=== PATIENT | female | born 1995 | race African-American/Black ===

== ENCOUNTER → 2016-08-30 | Outpatient (CLI) | payer OTHER ==
[~2016-08-30] MED LIST: AMOX875T PO; DEPO150I IM; IBUP800T23 PO; MACR100C2 PO; PRED10 PO
== END ==
LOC: HPND 12:54
PROVIDERS: ATTEND Obstetrics & Gynecology
DX: O30.049 Twin pregnancy, dichorionic/diamniotic, unspecified trimester (principal)
CPT/HCPCS: 76811; 76812; 76817

== ENCOUNTER → 2016-09-19 | Outpatient (CLI) | payer OTHER | LOC: HPND 08:12 | PROVIDERS: ATTEND Obstetrics & Gynecology | DX: O43.192 Other malformation of placenta, second trimester (principal); O30.042 Twin pregnancy, dichorionic/diamniotic, second trimester; Z3A.22 22 weeks gestation of pregnancy | CPT/HCPCS: 76811; 76812; 76817 ==

== ENCOUNTER → 2016-10-16 | Outpatient (CLI) | payer OTHER | LOC: HPND 07:53 | PROVIDERS: ATTEND Obstetrics & Gynecology | DX: O30.042 Twin pregnancy, dichorionic/diamniotic, second trimester (principal) | CPT/HCPCS: 76816 ==

== ENCOUNTER → 2016-11-13 | Outpatient (CLI) | payer OTHER | LOC: HPND 07:49 | PROVIDERS: ATTEND Obstetrics & Gynecology | DX: O30.042 Twin pregnancy, dichorionic/diamniotic, second trimester (principal); Z3A.30 30 weeks gestation of pregnancy | CPT/HCPCS: 76816 ==

== ENCOUNTER → 2016-12-04 | Outpatient (CLI) | payer OTHER, MEDICAID | LOC: HPND 08:03 | PROVIDERS: ATTEND Obstetrics & Gynecology | DX: O30.043 Twin pregnancy, dichorionic/diamniotic, third trimester (principal) | CPT/HCPCS: 76816 ==

== ENCOUNTER 2016-12-16 22:09 | Emergency (ER) | payer OTHER ==
[~2016-12-16 22:09] MED LIST changes: -MACR100C2 PO
[2016-12-16 22:30] VITALS: BP 118/75; PULSE 92
[2016-12-16 22:45] VITALS: RESP 18; TEMP 98.2
[2016-12-16] MEDS ORDERED: TERBUTALINE INJ 1 MG/ML AMP ONE (22:57)
[2016-12-16] MEDS ORDERED: TERBUTALINE INJ 1 MG/ML AMP SQ ONE (23:00)
[2016-12-16 23:06] LABS: BACTERIA, URINE MOD /hpf; BLOOD, URINE NEG (NEG); GLUCOSE,URINE NEG (NEG); KETONE, URINE NEG (NEG); MUCUS URINE FEW /lpf (OCC); NITRITE,URINE NEG (NEG); PH, URINE 6.5 (5.0-8.5); SQUAMOUS EPITHELIAL CELL URINE 1 /hpf (0-5); URINE COLOR YELLOW (YELLW/STRAW)
[2016-12-16 23:09] LABS: COMMENT (UR) CULTURE INDICATED; CULTURE IF INDICATED CULTURE INDICATED
[2016-12-16] MEDS ORDERED: MACR100C2 PO (23:37)
--- NOTE | 2016-12-16 23:37 | PD ---
HPI Chief Complaint contractions Date Seen: Dec 16, 2016 Travel History International Travel<30 Days: No Contact w/Intl Traveler<30Days: No Known Affected Area: No History of Present Illness HPI This is a 21y/o at 34w5d with di/di TIUP who presented to the [facility] with reports of "baby balling up." She states the contractions are 2 minutes apart. No vaginal bleeding or leakage of fluid with reports of active movements. Pt reports poor water intake today. care with Dr. Nolan, care complicated by: 1. Di/di tiup 2. morbid obesity Para: 0 : 1 History Past Medical History Medical History: Denies Significant Hx Past Surgical History Surgical History: No Previous Surgery Family History Family History: Negative Social History Alcohol Use: No Tobacco Use: No Substance Abuse: No Allergies-Medications (Allergen,Severity, Reaction): Coded Allergies: No Known Allergies (Verified , 03/21/16) Home Meds Active Scripts Nitrofurantoin Monohydrate Macrocrystals (Macrobid)100 Mg Pbp019 Mg PO BID PRN ( Infection) 7 Days Ref 0 Prov:Marga Rodriguez MD 12/16/16 Prednisone (Deltasone)10 Mg Tab30 Mg PO DAILY #9 TAB Ref 0 Prov:Andrés Dugan MD 03/21/16 Ibuprofen 800 Mg Bwc383 Mg PO TID PRN (pain) #30 TAB Ref 0 Prov:Andrés Dugan MD 03/21/16 Amoxicillin (Amoxil)875 Mg Tlz240 Mg PO BID 10 Days Prov:Jovanny Barba MD 07/27/15 Reported Medications Medroxyprogesterone Acetate (Depo-Provera Contraceptive)150 Mg/Ml Zwgq360 Mg IM Q90D 01/17/15 Review of Systems Except as stated in HPI: all other systems reviewed are Neg Physical Exam Narrative GENERAL: Well-nourished, well-developed patient. SKIN: Warm and dry. HEAD: Normocephalic and atraumatic. EYES: No scleral icterus. No injection or drainage. ENT: No nasal drainage noted. Mucous membranes pink. Airway patent. NECK: Supple, trachea midline. No JVD. CARDIOVASCULAR: Regular rate and rhythm without murmurs, gallops, or rubs. RESPIRATORY: Breath sounds equal bilaterally. No accessory muscle use. BREASTS: Bilateral exam showed no masses , no retractions, no nipple discharge. ABDOMEN/GI: Abdomen soft, non-tender, bowel sounds present, no rebound, no guarding Gravid to 34 weeks size Fundal Height: 39 GENITOURINARY: External Genitalia: intact and normal in appearance VE: c/thick/high Uterine Contractions: q 2-3 minutes apart FHT's: Category: 1, tracing patchy, very active fetuses EXTREMITIES: No cyanosis or edema. BACK: Nontender without obvious deformity. No CVA tenderness. NEUROLOGICAL: Awake and alert. Motor and sensory grossly within normal limits. Five out of 5 muscle strength in all muscle groups. Normal speech. Data Data Orders Urinalysis - C+S If Indicated (12/16/16 22:28) Terbutaline Inj (Brethine Inj) (12/16/16 22:57) Vital Signs (Adult) .ON ADMISSION (12/16/16 22:58) ^ Labor Status (12/16/16 22:58) ^ Non Stress Test (12/16/16 22:58) ^ Hydration (12/16/16 22:58) Terbutaline Inj (Brethine Inj) (12/16/16 23:00) Urine Culture (12/16/16 22:25) Labs Laboratory Tests Test 12/16/16 22:25 Urine Color YELLOW Urine Turbidity HAZY Urine pH 6.5 Urine Specific [place] 1.015 Urine Protein TRACE Urine Glucose (UA) NEG Urine Ketones NEG Urine Occult Blood NEG Urine Nitrite NEG Urine Bilirubin NEG Urine Urobilinogen LESS THAN 2.0 Urine Leukocyte Esterase MOD Urine RBC LESS THAN 1 Urine WBC 3 Urine Squamous Epithelial 1 Cells Urine Bacteria MOD Urine Mucus FEW Microscopic Urinalysis Comment CULTURE INDICATED Date/Time Procedure Status Source Growth 12/16/16 22:25 Urine Culture Received Urine Clean Catch Pending MDM Medical Record Reviewed: Yes Narrative Course / MDM 21y/o at 34w5d with di/di TIUP with UTI. -reassuring status times 2, tracing patchy due to very active fetuses -no evidence of PTL -received 2 doses of terbutaline and contractions subsided Plan -Rx macrobid -f/u with Dr. Nolan as scheduled Diagnosis Diagnosis: Primary Impression: UTI (urinary tract infection) in in third trimester Additional Impression: Dichorionic diamniotic twin in third trimester Disposition: 01 DISCHARGE HOME Condition: Good Scripts Nitrofurantoin Monohydrate Macrocrystals (Macrobid)100 Mg Ydw006 Mg PO BID PRN ( Infection) 7 Days Ref 0 Prov:Marga Rodriguez MD 12/16/16 Marga Rodriguez MD Dec 16, 2016 23:37
[2016-12-17] MEDS ORDERED: TERBUTALINE INJ 1 MG/ML AMP SQ ONE (00:30)
== END 2016-12-17 01:16 | disposition home or self-care (01) ==
LOC: HOBED 22:09
DX: O23.43 Unspecified infection of urinary tract in pregnancy, third trimester (principal); O30.043 Twin pregnancy, dichorionic/diamniotic, third trimester; O99.213 Obesity complicating pregnancy, third trimester; Z3A.34 34 weeks gestation of pregnancy; Z79.899 Other long term (current) drug therapy
CPT/HCPCS: 81001; 87086; 99283; J3105

== ENCOUNTER 2016-12-31 21:16 | Emergency (ER) | payer OTHER, MEDICAID ==
[~2016-12-31 21:16] MED LIST changes: +MACR100C2 PO
[2016-12-31 21:45] VITALS: TEMP 98
--- NOTE | 2016-12-31 21:58 | PD ---
HPI Travel History International Travel<30 Days: No Contact w/Intl Traveler<30Days: No Known Affected Area: No History of Present Illness HPI This patient is a 21-year-old 1 para 0 EDC is January 22, 2017 presently at 36 weeks and 6 days she presents with the chief complaint of onset of contractions since about 7:30 PM no ruptured membranes no vaginal bleeding both babies are active she has a twin gestation first baby is transverse second one is vertex and will be having a section No nausea no vomiting no fever no chills no headaches no blurred vision has had diarrhea for about 2 days care with courses been unremarkable History Past Medical History Narrative Medical No known drug allergies no major medical problems Obstetric History Obstetric History First Past Surgical History Surgical History: No Previous Surgery Family History Family History: Negative Social History Alcohol Use: No Tobacco Use: No Substance Abuse: No Allergies-Medications (Allergen,Severity, Reaction): Coded Allergies: No Known Allergies (Verified , 03/21/16) Home Meds Active Scripts Nitrofurantoin Monohydrate Macrocrystals (Macrobid)100 Mg Ixm230 Mg PO BID PRN ( Infection) 7 Days Ref 0 Prov:Marga Rodriguez MD 12/16/16 Prednisone (Deltasone)10 Mg Tab30 Mg PO DAILY #9 TAB Ref 0 Prov:Andrés Dugan MD 03/21/16 Ibuprofen 800 Mg Tgd554 Mg PO TID PRN (pain) #30 TAB Ref 0 Prov:Andrés Dugan MD 03/21/16 Amoxicillin (Amoxil)875 Mg Gkg689 Mg PO BID 10 Days Prov:Jovanny Barba MD 07/27/15 Reported Medications Medroxyprogesterone Acetate (Depo-Provera Contraceptive)150 Mg/Ml Azzf016 Mg IM Q90D 01/17/15 Review of Systems Gastrointestinal: Diarrhea, Abdominal Pain (contractions as per history of present illness) Physical Exam Narrative GENERAL: Well-nourished, well-developed patient. Alert oriented 3 and cooperative in no acute distress CARDIOVASCULAR: Regular rate and rhythm without murmurs, gallops, or rubs. RESPIRATORY: Breath sounds equal bilaterally. No accessory muscle use. ABDOMEN/GI: Gravid size greater than dates due to twin gestation Gravid to [-] weeks size size greater than dates Fundal Height: [-] GENITOURINARY: External Genitalia: intact and normal in appearance BUS glands: [-] Cervix: [-] Posterior soft Dilatation: [-] Fingertip to 1 Effacement: [-] 50% effaced Station: [-] Presenting part is high Presentation: [-] Unable to determine presenting part Membranes: [intact Uterine Contractions: [-] Irregular FHT's: Category: [-] 06/25 Baseline: [-] 140/140 Reactive: [-] +/+ Variability: [-] Moderate [id number] variability Decels: [-] 0 EXTREMITIES: No cyanosis or edema. 2+ reflexes NEUROLOGICAL: Awake and alert. Motor and sensory grossly within normal limits. Five out of 5 muscle strength in all muscle groups. Normal speech. Data Data Vital Signs Reviewed: Yes (blood pressure 133/80 pulse is 87 she is afebrile) Orders Vital Signs (Adult) .ON ADMISSION (12/31/16 21:53) ^ Labor Status (12/31/16 21:53) Urinalysis - C+S If Indicated (12/31/16 21:53) ^ Hydration (12/31/16 21:53) Labs Both babies demonstrate category 1 with moderate [id number] variability and accelerations MDM Medical Record Reviewed: No (no records available) Interpretation(s) 21-year-old at 36 weeks and 6 days Diamniotic dichorionic twin gestation [place] No clinical signs of active labor Transverse/ vertex necessitating section Narrative Course / MDM Patient evaluated after observation over the past hour no cervical change Urinalysis indicative UTI Will place patient on Keflex 500 mg by mouth 3 times a day for 7 days increase by mouth fluids kick count Keep appointment with Dr. Nolan on Sunday Plan External monitoring By mouth fluid hydration Urinalysis Reevaluation Physician Communication Spoke with Dr. Matos who is covering for DR herzog he agrees with evaluation and management Diagnosis Diagnosis: Primary Impression: 36 weeks gestation of Additional Impressions: Twin gestation in third trimester Qualified Code: O30.043 - Dichorionic diamniotic twin in third trimester Urinary tract infection affecting care of mother in third trimester, antepartum Disposition: DISCHARGE HOME Condition: Stable Mihaela Whitaker MD Dec 31, 2016 21:57
[2016-12-31 22:23] LABS: BACTERIA, URINE MANY /hpf; BLOOD, URINE NEG (NEG); COMMENT (UR) CULTURE INDICATED; CULTURE IF INDICATED CULTURE INDICATED; GLUCOSE,URINE NEG (NEG); KETONE, URINE NEG (NEG); MUCUS URINE FEW /lpf (OCC); NITRITE,URINE NEG (NEG); PH, URINE 6.5 (5.0-8.5); SQUAMOUS EPITHELIAL CELL URINE 4 /hpf (0-5); URINE COLOR YELLOW (YELLW/STRAW)
[2016-12-31 22:30] VITALS: RESP 18
== END 2016-12-31 22:54 | disposition home or self-care (01) ==
LOC: HOBED 21:16
DX: O23.43 Unspecified infection of urinary tract in pregnancy, third trimester (principal); O30.043 Twin pregnancy, dichorionic/diamniotic, third trimester; Z3A.36 36 weeks gestation of pregnancy; Z79.899 Other long term (current) drug therapy; Z79.1 Long term (current) use of non-steroidal anti-inflammatories (NSAID)
CPT/HCPCS: 59025; 81001; 87086

== ENCOUNTER 2017-01-02 14:13 | Inpatient (IN) | payer OTHER, MEDICAID ==
[~2017-01-02] VITALS: Ht 177.8 cm; Wt 127.5 kg
[2017-01-08] VITALS (13 sets, daily range): BP systolic 107–129; BP diastolic 57–69; PULSE 71–79; RESP 16–22; TEMP 97.6–98.2; O2SAT 97–100
[2017-01-08] MEDS ORDERED: prenatal vitamin (10:29)
[2017-01-08] MEDS ORDERED: ASPI81CH CHEW (10:29)
[2017-01-08 10:57] LABS: MEAN CORPUSCULAR HGB CONC 29.8 % (32.0-36.0)
[2017-01-08 11:05] LABS: AUTOMATED NEUTROPHIL # 6.1 TH/MM3 (1.8-7.7); BASOPHIL % 0.4 % (0.0-2.0); EOSINOPHIL % 0.5 % (0.0-4.0); HEMATOCRIT 23.7 % (35.0-46.0); HEMO FLAGS DIFF FINAL; LYMPH % 18.7 % (9.0-44.0); LYMPHOCYTE # 1.6 TH/MM3 (1.0-4.8); MEAN CELL VOLUME 65.2 FL (80.0-100.0); MEAN CORPUSCULAR HEMOGLOBIN 19.4 PG (27.0-34.0); MONO % 8.7 % (0.0-8.0); NEUT % 71.7 % (16.0-70.0); PLATELET COUNT 220 TH/MM3 (150-450); RED BLOOD COUNT 3.63 MIL/MM3 (4.00-5.30); RED CELL DISTRIBUTION WIDTH 18.5 % (11.6-17.2); WHITE BLOOD COUNT 8.5 TH/MM3 (4.0-11.0)
[2017-01-08 11:09] LABS: BACTERIA, URINE MOD /hpf; BLOOD, URINE NEG (NEG); COMMENT (UR) CULTURE INDICATED; CULTURE IF INDICATED CULTURE INDICATED; GLUCOSE,URINE NEG (NEG); HYALINE CAST, URINE 1 /lpf (RARE); KETONE, URINE NEG (NEG); MUCUS URINE FEW /lpf (OCC); NITRITE,URINE NEG (NEG); PH, URINE 6.5 (5.0-8.5); SQUAMOUS EPITHELIAL CELL URINE 1 /hpf (0-5); URINE COLOR YELLOW (YELLW/STRAW)
[2017-01-08] MEDS ORDERED: LACTATED RINGER'S 1000 ML IV SCH (11:15)
[2017-01-08] MEDS ORDERED: LACTATED RINGER'S 1000 ML IV ONE (11:15)
[2017-01-08] MEDS ORDERED: ceFAZolin 2 GM PREMIX 50 ML IV SCH (11:15)
[2017-01-08] MEDS ORDERED: CITRIC ACID-SODIUM CITRATE LIQ 30 ML UDC PO SCH (11:15)
[2017-01-08] MEDS ORDERED: ONDANSETRON HCL 4 MG/2 ML VIAL ONE (11:37)
[2017-01-08] MEDS ORDERED: MORPHINE SULFATE PF 5 MG/10 ML VIAL ONE (11:37)
[2017-01-08] MEDS ORDERED: OXYTOCIN 10 UNIT/ML AMP ONE (11:38)
[2017-01-08] MEDS ORDERED: EPIDURAL-NALOXONE HCL 0.4 MG/ML AMP IV PRN (12:00)
[2017-01-08] MEDS ORDERED: EPIDURAL-NO SYSTEMIC NARCOTICS PRN (12:00)
[2017-01-08] MEDS ORDERED: EPIDURAL-DIPHENHYDRAMINE HCL 50 MG/ML VIAL IV PUSH PRN (12:00)
[2017-01-08] MEDS ORDERED: EPIDURAL-DO NOT ADMINISTER ANTICOAGULANTS PRN (12:00)
[2017-01-08] MEDS ORDERED: LACTATED RINGER'S 1,000 ML BAG IV ONE (12:15)
[2017-01-08] MEDS ORDERED: CARBOPROST TROMETHAMINE 250 MCG/ML VIAL ONE (12:35)
[2017-01-08] MEDS ORDERED: MIDAZOLAM HCL 2 MG/2 ML VIAL ONE (13:24)
[2017-01-08] MEDS ORDERED: SODIUM CHLORIDE 0.9% FLUSH 10 ML FLUSH IV FLUSH PRN (14:15)
[2017-01-08] MEDS ORDERED: ZOLPIDEM TARTRATE 5 MG TAB PO PRN (14:15)
[2017-01-08] MEDS ORDERED: OXYTOCIN 30 UNITS-500ML PREMIX 500 ML ONE (14:15)
[2017-01-08] MEDS ORDERED: OXYTOCIN 30 UNITS-500ML PREMIX 500 ML IV ONE (14:15)
[2017-01-08] MEDS ORDERED: ONDANSETRON HCL 4 MG/2 ML VIAL IV PUSH PRN (14:15)
[2017-01-08] MEDS ORDERED: HYDROmorphone HCL PF 1 MG/ML VIAL IV PRN (15:45)
[2017-01-08] MEDS: IBUPROFEN 600 MG TAB PO PRN ×2 (17:44→23:48)
[2017-01-08] MEDS ORDERED: LACTATED RINGER'S 1000 ML INJ 1,000 ML IV SCH (19:06)
[2017-01-08] MEDS: EPIDURAL-DIPHENHYDRAMINE HCL 50 MG CAP PO PRN (19:10)
[2017-01-08] MEDS: SODIUM CHLORIDE 0.9% FLUSH 10 ML FLUSH IV FLUSH SCH (19:30)
[2017-01-09] MEDS ORDERED: OXYTOCIN 30 UNITS-500ML PREMIX 500 ML IV PRN (00:15)
[2017-01-09 00:45] VITALS: RESP 18
[2017-01-09] MEDS: EPIDURAL-DIPHENHYDRAMINE HCL 50 MG CAP PO PRN (01:03)
[2017-01-09] MEDS: oxyCODONE/ACETAMINOPHEN 5 MG/325 MG TAB PO PRN ×6 (01:31→21:18)
[2017-01-09 03:45] VITALS: BP 122/60; PULSE 65; RESP 18; TEMP 97.8
[2017-01-09 05:04] LABS: BASOPHIL # 0.1 TH/MM3 (0-0.2); BASOPHIL % 0.5 % (0.0-2.0); EOSINOPHIL # 0.1 TH/MM3 (0-0.4); EOSINOPHIL % 0.8 % (0.0-4.0); LYMPH % 16.7 % (9.0-44.0); LYMPHOCYTE # 1.6 TH/MM3 (1.0-4.8); MEAN CORPUSCULAR HEMOGLOBIN 20.2 PG (27.0-34.0); MEAN CORPUSCULAR HGB CONC 30.7 % (32.0-36.0); MONO % 11.4 % (0.0-8.0); NEUT % 70.6 % (16.0-70.0); PLATELET COUNT 183 TH/MM3 (150-450); RED BLOOD COUNT 3.11 MIL/MM3 (4.00-5.30); RED CELL DISTRIBUTION WIDTH 18.4 % (11.6-17.2); WHITE BLOOD COUNT 9.9 TH/MM3 (4.0-11.0)
[2017-01-09 05:12] LABS: HEMO FLAGS DIFF FINAL
[2017-01-09 05:16] LABS: HEMATOCRIT 20.5 % (35.0-46.0)
[2017-01-09] MEDS: MULTIVIT/MIN/PREN/FOL AC/IRON PRENATAL TAB PO SCH (07:59)
[2017-01-09] MEDS: IBUPROFEN 600 MG TAB PO PRN ×3 (07:59→21:17)
[2017-01-09 08:04] VITALS: BP 120/81; PULSE 73; RESP 16; TEMP 97.7
--- NOTE | 2017-01-09 08:35 | HHI.OB ---
Subjective Post Operative Day: 1 Remarks Feeling well this morning. Those babies are doing excellently. No shortness of breath chest pain or pressure no dizziness. Pain is well controlled and tolerating the diet Objective Vitals/I&O Vital Signs Date Time Temp Pulse Resp B/P Pulse Ox O2 Delivery O2 Flow Rate FiO2 01/09/17 08:04 97.7 73 16 120/81 01/09/17 03:45 97.8 65 18 01/09/17 03:45 122/60 01/09/17 00:45 18 01/08/17 23:45 97.8 18 01/08/17 23:45 78 107/64 01/08/17 21:45 18 01/08/17 19:30 97.8 71 18 118/60 01/08/17 17:12 18 01/08/17 16:10 18 01/08/17 15:25 97.6 71 18 110/57 97 01/08/17 14:05 97.6 01/08/17 14:01 78 18 117/59 100 01/08/17 13:48 100 01/08/17 13:46 79 20 122/69 01/08/17 13:35 99 01/08/17 13:27 97.7 76 22 129/58 01/08/17 11:06 98.2 16 Result Diagram: 01/09/17 0404 Objective Remarks GENERAL: Well-nourished, well-developed patient. CARDIOVASCULAR: Regular rate and rhythm without murmurs, gallops, or rubs. RESPIRATORY: Breath sounds equal bilaterally. No accessory muscle use. ABDOMEN/GI: Abdomen soft, non-tender, bowel sounds present. Incision: Clean, dry and intact. Fundus: Firm, non-tender at umbilicus. GENITOURINARY: Light to moderate bleeding. EXTREMITIES: No cyanosis or edema, non-tender, without signs of DVT. Medications and IVs Current Medications Medications (Trade) Dose Ordered Sig/Raji Route Start Time Stop Time Status Last Admin (Lr 1000 ml Inj) 1,000 ml @ 100 mls/hr Q10H IV 01/08/17 19:06 01/09/17 15:05 01/08/17 20:00 (NS Flush) 2 ml BID IV FLUSH 01/08/17 21:00 01/08/17 19:30 (NS Flush) 2 ml UNSCH PRN IV FLUSH 01/08/17 14:15 (Mylicon Chew) 80 mg QID PRN PO 01/08/17 14:15 (Motrin) 600 mg Q6H PRN PO 01/08/17 14:15 01/09/17 07:59 (Percocet 5-325 Mg) 1 tab Q4H PRN PO 01/08/17 14:15 01/09/17 03:44 (Percocet 5-325 Mg) 2 tab Q4H PRN PO 01/08/17 14:15 01/09/17 08:00 (Ivelisse-Colace) 2 tab Q12H PRN PO 01/08/17 14:15 (Ambien) 5 mg HS PRN PO 01/08/17 14:15 (M-M-R Ii Inj) 0.5 ml ONCE ONCE SQ 01/09/17 16:00 01/09/17 16:01 (Boostrix Inj) 0.5 ml ONCE ONCE IM 01/09/17 16:00 01/09/17 16:01 (Zofran Inj) 4 mg Q6H PRN IV PUSH 01/08/17 14:15 (Stuartnatal Plus 3 ) 1 tab DAILY PO 01/09/17 09:00 01/09/17 07:59 Miscellaneous Information NO SYSTEMIC NARCOTICS TO BE GIVEN FO... UNSCH PRN .XX 01/08/17 12:00 01/09/17 11:59 (Narcan Inj) 0.4 mg UNSCH PRN IV 01/08/17 12:00 01/09/17 11:59 (Benadryl Inj) 25 mg Q6H PRN IV PUSH 01/08/17 12:00 01/09/17 11:59 (Benadryl) 50 mg Q6H PRN PO 01/08/17 12:00 01/09/17 11:59 01/09/17 01:03 Miscellaneous Information ALL NURSING DEPARTMENTS UNSCH PRN .XX 01/08/17 12:00 01/09/17 11:59 Assessment/Plan Assessment and Plan POD #1 Status post section for twin gestation Severe anemia he came in with a hemoglobin of 7 and now she has a hemoglobin of 6.3 but she is totally asymptomatic I will start Venofer. This time and recheck her blood count in the morning if it is still low we'll discuss the transfusion and rate are detail. We will transfuse her if she becomes symptomatic in any way. Discharge Planning Plan to discharge on postop day 3 or 4 Diamond Nolan MD Jan 09, 2017 08:35
[2017-01-09] MEDS: SODIUM CHLORIDE 0.9% FLUSH 10 ML FLUSH IV FLUSH SCH ×2 (09:00→23:18)
[2017-01-09] MEDS ORDERED: IRON SUCROSE INJ 200 MG in SODIUM CHLORIDE 0.9% INJ 100 ML IV SCH (09:00)
--- NOTE | 2017-01-09 11:19 | MP ---
cc: ANA NOLAN DATE OF SURGERY 01/08/2017 PREOPERATIVE DIAGNOSIS 1. Intrauterine at 38 weeks 2. Twin gestation 3. Transverse position 4. Severe anemia POSTOPERATIVE DIAGNOSIS 1. Intrauterine at 38 weeks 2. Twin gestation 3. Transverse position 4. Severe anemia PROCEDURE Primary low transverse section. ANESTHESIA Spinal SURGEON Sohail Nolan MD FINDINGS Two viable twins, twin A with 's of 8 and 9, weight 6 pounds 11 ounces. Twin B 's of 8 and 9, weight was 5 pounds 6 ounces, normal tubes, normal ovaries, normal cul-de-sacs normal uterus. COMPLICATIONS None COUNTS Correct ESTIMATED BLOOD LOSS 600 cc FLUIDS Crystalloids CONDITION The patient tolerated the procedure well and went to the recovery room in good condition. INDICATIONS FOR THE PROCEDURE This is a patient who has had a twin gestation and has done very well. She had an ultrasound on the labor floor prior to this section which confirmed transverse/transverse twins. After discussing the risks and benefits, we decided to proceed with section. PROCEDURE NOTE The patient was taken to the operating room and given a spinal anesthetic. She was then prepped and draped in the usual sterile fashion for a delivery and a Reynoso catheter inserted into the bladder. Time-out was taken and a Pfannenstiel incision was made and carried down to the fascia. The fascia was taken off the rectus muscle by blunt sharp dissection. The peritoneum was entered under direct vision. The peritoneum was taken off the lower uterine segment for a bladder flap and the uterus was incised in a transverse manner. The first baby was transverse went up and grabbed the vertex, moved it down to the incision and with gentle fundal pressure, we delivered the 's head. The remainder of the was delivered. The cord doubly clamped and cut and handed to the resuscitation team present. The second twin was also a transverse and likewise I grabbed the head, gently pulled it down to the incision and with gentle fundal pressure delivered the vertex and the remainder the child. Again, the cord was doubly clamped and cut and cord blood obtained was obtained and the placenta was delivered manually. We did not wait 45 seconds for the cord clamping because of the severe anemia of the patient and trying to avoid a blood transfusion. The uterus was then curettaged twice with a wet lap once it was clean. The uterine incision was repaired with a 0 Vicryl in a running fashion in two layers, the second layer imbricating the first. The Hemabate was given at this time in an effort to minimize bleeding. The uterus was delivered back into the abdomen and the rectus muscles were reapproximated with 0 Vicryl in a running fashion. The fascia was repaired with 0 Vicryl in a running fashion. The subcu was repaired with 3-0 Vicryl. Skin was repaired with a 4-0 Monocryl in subcuticular fashion. The wound was sterilely dressed. She tolerated the procedure well and went to the recovery room in good condition. R. MD VIBHA Anand/KIN /7:02 AM /11:16 AM
[2017-01-09] MEDS ORDERED: MEASLES, MUMPS, RUBELLA VACCINE 0.5 ML VIAL SQ ONE (16:00)
[2017-01-09] MEDS ORDERED: DIPHTH/TETANUS/ACEL PERTUSSIS (BOOSTER) 0.5 ML VIAL/PFS IM ONE (16:00)
[2017-01-09 19:45] VITALS: BP 126/70; PULSE 87; RESP 18; TEMP 98.8
[2017-01-09] MEDS: SIMETHICONE 80 MG CHEWABLE TAB PO PRN (21:18)
[2017-01-09] MEDS: DOCUSATE SODIUM 50 MG/SENNA 8.6 MG TAB PO PRN (22:01)
[2017-01-10] VITALS (8 sets, daily range): BP systolic 117–127; BP diastolic 26–88; PULSE 79–94; RESP 16–18; TEMP 98.1–98.6
[2017-01-10] MEDS: oxyCODONE/ACETAMINOPHEN 5 MG/325 MG TAB PO PRN ×4 (03:03→23:03)
[2017-01-10] MEDS: IBUPROFEN 600 MG TAB PO PRN ×4 (03:04→23:04)
[2017-01-10] MEDS: DOCUSATE SODIUM 50 MG/SENNA 8.6 MG TAB PO PRN ×2 (09:36→23:04)
[2017-01-10] MEDS: MULTIVIT/MIN/PREN/FOL AC/IRON PRENATAL TAB PO SCH (09:36)
[2017-01-10] MEDS: SIMETHICONE 80 MG CHEWABLE TAB PO PRN ×2 (09:36→23:04)
[2017-01-10 09:40] LABS: MEAN CELL VOLUME 64.8 FL (80.0-100.0); MEAN CORPUSCULAR HEMOGLOBIN 19.4 PG (27.0-34.0); PLATELET COUNT 212 TH/MM3 (150-450); RED BLOOD COUNT 3.21 MIL/MM3 (4.00-5.30); RED CELL DISTRIBUTION WIDTH 17.8 % (11.6-17.2); WHITE BLOOD COUNT 11.7 TH/MM3 (4.0-11.0)
[2017-01-10 09:47] LABS: REVIEW FLAG FINAL
[2017-01-10 09:49] LABS: HEMATOCRIT 20.8 % (35.0-46.0)
--- NOTE | 2017-01-10 11:07 | HHI.OB ---
Subjective Post Operative Day: 2 Objective Vitals/I&O Vital Signs Date Time Temp Pulse Resp B/P Pulse Ox O2 Delivery O2 Flow Rate FiO2 01/10/17 08:39 79 16 121/73 01/10/17 08:39 98.6 01/09/17 19:45 87 126/70 01/09/17 19:45 98.8 18 Result Diagram: 01/10/17916 Objective Remarks GENERAL: Well-nourished, well-developed patient. CARDIOVASCULAR: Regular rate and rhythm without murmurs, gallops, or rubs. RESPIRATORY: Breath sounds equal bilaterally. No accessory muscle use. ABDOMEN/GI: Abdomen soft, non-tender, bowel sounds present. Incision: Clean, dry and intact. Fundus: Firm, non-tender at umbilicus. GENITOURINARY: Light to moderate bleeding. EXTREMITIES: No cyanosis or edema, non-tender, without signs of DVT. Medications and IVs Current Medications Medications (Trade) Dose Ordered Sig/Raji Route Start Time Stop Time Status Last Admin (NS Flush) 2 ml BID IV FLUSH 01/08/17 21:00 01/09/17 23:18 (NS Flush) 2 ml UNSCH PRN IV FLUSH 01/08/17 14:15 (Mylicon Chew) 80 mg QID PRN PO 01/08/17 14:15 01/10/17 09:36 (Motrin) 600 mg Q6H PRN PO 01/08/17 14:15 01/10/17 09:36 (Percocet 5-325 Mg) 1 tab Q4H PRN PO 01/08/17 14:15 01/09/17 12:26 (Percocet 5-325 Mg) 2 tab Q4H PRN PO 01/08/17 14:15 01/10/17 09:36 (Ivelisse-Colace) 2 tab Q12H PRN PO 01/08/17 14:15 01/10/17 09:36 (Ambien) 5 mg HS PRN PO 01/08/17 14:15 (Zofran Inj) 4 mg Q6H PRN IV PUSH 01/08/17 14:15 Prenat Multivit/ Kleberg/Iron/Folic Ac 1 tab 1 tab DAILY PO 01/09/17 09:00 01/10/17 09:36 (Venofer Inj/NS Inj) 110 ml @ 110 mls/hr Q24H IV 01/10/17 13:00 01/11/17 13:59 Assessment/Plan Problem List: (1) Anemia Plan: IV VENOFER. CONSIDER TRANSFUSION (2) S/P primary low transverse Plan: ROUTINE Assessment and Plan POD #2 Status post section for twin gestation Severe anemia she came in with a hemoglobin of 7, next day 6.3, and today 6.2. Pt has had iv venofer. she denies chest pain, dizziness or sob, she is feeling more tired today. Here family is very helpful with the babies. Discussed with patient that I feel the benefits of a transfusion will outweigh any risks. she will discuss with her family. PAIN WELL MANAGED WITH ORAL PAIN MEDICATION ROUTINE POST OP CARE Discharge Planning Plan to discharge on postop day 3 Nga Bond Jan 10, 2017 11:07
[2017-01-10] MEDS ORDERED: diphenhydrAMINE HCL 50 MG/ML VIAL IV ONE (12:30)
[2017-01-10] MEDS ORDERED: ACETAMINOPHEN 325 MG TAB PO ONE (12:30)
[2017-01-10] MEDS ORDERED: IRON SUCROSE INJ 200 MG in SODIUM CHLORIDE 0.9% INJ 100 ML IV SCH (13:00)
[2017-01-11 05:59] LABS: AUTOMATED NEUTROPHIL # 10.9 TH/MM3 (1.8-7.7); BASOPHIL % 0.2 % (0.0-2.0); EOSINOPHIL # 0.2 TH/MM3 (0-0.4); EOSINOPHIL % 1.6 % (0.0-4.0); HEMATOCRIT 23.7 % (35.0-46.0); HEMO FLAGS DIFF FINAL; LYMPH % 13.5 % (9.0-44.0); LYMPHOCYTE # 1.9 TH/MM3 (1.0-4.8); MEAN CELL VOLUME 68.4 FL (80.0-100.0); MEAN CORPUSCULAR HEMOGLOBIN 21.6 PG (27.0-34.0); MEAN CORPUSCULAR HGB CONC 31.6 % (32.0-36.0); MONO % 7.9 % (0.0-8.0); NEUT % 76.8 % (16.0-70.0); PLATELET COUNT 207 TH/MM3 (150-450); RED BLOOD COUNT 3.46 MIL/MM3 (4.00-5.30); RED CELL DISTRIBUTION WIDTH 20.9 % (11.6-17.2); WHITE BLOOD COUNT 14.2 TH/MM3 (4.0-11.0)
[2017-01-11] MEDS: IBUPROFEN 600 MG TAB PO PRN ×2 (06:20→10:37)
[2017-01-11] MEDS: oxyCODONE/ACETAMINOPHEN 5 MG/325 MG TAB PO PRN ×2 (06:20→11:15)
[2017-01-11 08:00] VITALS: BP 112/68; PULSE 83; RESP 18; TEMP 98.5
--- NOTE | 2017-01-11 11:36 | HHI.HP ---
HPI Chief Complaint presents for scheduled primary c section for twins Date Seen: Jan 08, 2017 Travel History International Travel<30 Days: No Contact w/Intl Traveler<30Days: No Known Affected Area: No History of Present Illness HPI 21 year old black female, who is with Di/Di twins at 38 weeks gestation , She is being admitted for a primary c section due to the transverse/ transverse position Para: 0 : 2 : 1 History Past Medical History Narrative Medical anemia with right breast mass CIN1, September of 2015, last pap April 2016 Obstetric History Obstetric History Di/Di twins at 38 weeks gbs negative Past Surgical History Narrative Surgical none Family History Narrative Family History dementia great grandmother High bp grandmother Social History Alcohol Use: No Tobacco Use: No Substance Abuse: No Allergies-Medications (Allergen,Severity, Reaction): Coded Allergies: No Known Allergies (Verified , 01/15/17) Home Meds Active Scripts Amoxicillin-Clavulanate (Augmentin)875-125 Mg Tab1 Tab PO BID 10 Days Ref 0 Prov:Cyndie Youssef DO 01/15/17 Ferrous Sulfate (Feosol)200 Mg Edm175 Mg PO BIDPC #60 TAB Ref 1 Prov:Diamond Nolan MD 01/11/17 Oxycodone-Acetaminophen 5-325 mg Tab1 Tab PO Q4H #30 TAB Prov:Diamond Nolan MD 01/11/17 Ibuprofen 600 Mg Nok264 Mg PO Q6H #30 TAB Ref 2 Prov:Diamond Nolan MD 01/11/17 Reported Medications [ vitamin] No Conflict Check1 Tab DAILY 01/08/17 Discontinued Reported Medications Aspirin 81 Mg Chew81 Mg CHEW DAILY Ref 0 01/08/17 Review of Systems Except as stated in HPI: all other systems reviewed are Neg Physical Exam Vital Signs Date Time Temp Pulse Resp B/P Pulse Ox O2 Delivery O2 Flow Rate FiO2 01/11/17 08:00 98.5 01/11/17 08:00 83 18 112/68 01/10/17 20:27 98.4 94 16 124/85 01/10/17 20:25 98.4 94 16 124/85 01/10/17 20:25 98.4 94 16 124/85 01/10/17 18:23 98.3 83 18 121/88 01/10/17 18:00 98.3 86 18 127/80 01/10/17 17:02 98.1 91 18 117/26 01/10/17 14:00 98.2 89 17 121/65 01/10/17 13:38 98.3 88 16 118/63 Narrative GENERAL: Well-nourished, well-developed patient. SKIN: Warm and dry. HEAD: Normocephalic and atraumatic. EYES: No scleral icterus. No injection or drainage. ENT: No nasal drainage noted. Mucous membranes pink. Airway patent. NECK: Supple, trachea midline. No JVD. CARDIOVASCULAR: Regular rate and rhythm without murmurs, gallops, or rubs. RESPIRATORY: Breath sounds equal bilaterally. No accessory muscle use. BREASTS: Bilateral exam showed no masses , no retractions, no nipple discharge. ABDOMEN/GI: Abdomen soft, gravid, non-tender, bowel sounds present, no rebound, no guarding GENITOURINARY: External Genitalia: intact and normal in appearance BUS glands: [-] Cervix: [-] Dilatation: [-] Effacement: [-] Station: [-] Presentation: [-] Membranes: [intact or ruptured] Uterine Contractions: [-] FHT's: Category: [-] Baseline: [-] Reactive: [-] Variability: [-] Decels: [-] EXTREMITIES: No cyanosis or edema. BACK: Nontender without obvious deformity. No CVA tenderness. NEUROLOGICAL: Awake and alert. Motor and sensory grossly within normal limits. Five out of 5 muscle strength in all muscle groups. Normal speech. Data Data Vital Signs Reviewed: Yes Orders Instruction (01/10/17 12:14) Diphenhydramine Inj (Benadryl Inj) (01/10/17 12:30) Acetaminophen (Tylenol) (01/10/17 12:30) Complete Blood Count With Diff (01/11/17 06:00) Labs Laboratory Tests Test 01/11/17 05:23 White Blood Count 14.2 Red Blood Count 3.46 Hemoglobin 7.5 Hematocrit 23.7 Mean Corpuscular Volume 68.4 Mean Corpuscular Hemoglobin 21.6 Mean Corpuscular Hemoglobin 31.6 Concent Red Cell Distribution Width 20.9 Platelet Count 207 Mean Platelet Volume 9.6 Neutrophils (%) (Auto) 76.8 Lymphocytes (%) (Auto) 13.5 Monocytes (%) (Auto) 7.9 Eosinophils (%) (Auto) 1.6 Basophils (%) (Auto) 0.2 Neutrophils # (Auto) 10.9 Lymphocytes # (Auto) 1.9 Monocytes # (Auto) 1.1 Eosinophils # (Auto) 0.2 Basophils # (Auto) 0.0 CBC Comment DIFF FINAL Differential Comment Date/Time Procedure Status Source Growth 01/08/17 09:45 Urine Culture - Final Complete Urine Clean Catch 50-100,000 CFU/ML MIXED GRAM POSITIVE... Assessment/Plan Problem List: (1) Anemia Plan: IV VENOFER. CONSIDER TRANSFUSION (2) S/P primary low transverse Plan: ROUTINE Assessment and Plan iup at 38 weeks di/di twins transverse/transverse position by u/s severe anemia primary c section Discharge Planning Plan to discharge on postop day 3 Nga Bond Jan 11, 2017 11:36 Plan to discharge on postop day 3 Nga Bond Jan 11, 2017 11:36 Plan to discharge on postop day 3 Nga Bond Jan 11, 2017 11:36
--- NOTE | 2017-01-11 12:43 | HHI.DCPOC ---
Discharge Care Plan Diagnosis: (1) S/P primary low transverse (2) Anemia Your Health Problems Are: delivery Report Symptoms to Your Doctor -Temperature above 100.5 degrees -Redness, of incision or excessive or foul smelling drainage -Unusual pain or calf pain -Increased vaginal bleeding -Painful or difficulty urinating -Feelings of extreme sadness or anxiety after 2 weeks Goals to Promote Your Health * To prevent worsening of your condition and complications * To maintain your health at the optimal level Directions to Meet Your Goals Take your medications as prescribed Follow your dietary instruction Follow activity as directed Ensure plenty of rest for recovery Drink fluids for hydration Keep your appointments as scheduled Take your immunizations and boosters as scheduled If your symptoms worsen call your PCP, if no PCP go to Urgent Care Center or Emergency Room Smoking is Dangerous to Your Health. Avoid second hand smoke Call the 24-hour crisis hotline for domestic abuse at Nga Bond Jan 11, 2017 12:43
--- NOTE | 2017-01-11 12:46 | HHI.DS ---
Admission Date Jan 08, 2017 at 09:30 Discharge Date: Jan 11, 2017 Admitting Diagnosis 38 week twin / primary c section for transverse presentation anemia Diagnosis: (1) S/P primary low transverse Diagnosis: Principal (2) Anemia Diagnosis: Principal Delivery Date: Jan 08, 2017 : Primary Reason: transverse presentation of twins Brief History 21 year old black female, who is with Di/Di twins at 38 weeks gestation , She is being admitted for a primary c section due to the transverse/ transverse position Pt Condition on Discharge: Good Discharge Disposition: Discharge Home Discharge Instructions Diet Instructions: As Tolerated, No Restrictions Additional Diet Instructions: Drink at least 8 - 16 oz bottles of water a day Activities You Can Perform: Shower Only-No Bath Activities to Avoid: Prolonged Standing, Strenuous Activity, Sexual Activity Additional Activity Instruc.: No driving until off pain medications Do not lift anything heavier than your baby in an carrier Follow up Referrals: STRATEGIC COMMUNICATIONS MANAGER - 1 Week @ [facility] [place] New Medications: Ferrous Sulfate (Feosol) 200 Mg Tab 200 MG PO BIDPC Nutritional Supplement #60 Ref 1 TAB Ibuprofen (Ibuprofen) 600 Mg Tab 600 MG PO Q6H Pain Management #30 Ref 2 TAB Oxycodone-Acetaminophen (Oxycodone-Acetaminophen) 5-325 mg Tab 1 TAB PO Q4H moderate pain #30 TAB Continued Medications: ([ vitamin]) 1 TAB DAILY Discontinued Medications: Aspirin (Aspirin) 81 Mg Chew 81 MG CHEW DAILY Ref 0 TAB Nga Bond Jan 11, 2017 12:46
[2017-01-11] MEDS ORDERED: FERR200T PO (14:08)
[2017-01-11] MEDS ORDERED: IBUP-232 PO (14:08)
[2017-01-11] MEDS ORDERED: OXYC1TAB63 PO (14:08)
--- NOTE | 2017-01-11 15:03 | HHI.OB ---
Objective Vitals/I&O Vital Signs Date Time Temp Pulse Resp B/P Pulse Ox O2 Delivery O2 Flow Rate FiO2 01/11/17 08:00 98.5 01/11/17 08:00 83 18 112/68 01/10/17 20:27 98.4 94 16 124/85 01/10/17 20:25 98.4 94 16 124/85 01/10/17 20:25 98.4 94 16 124/85 01/10/17 18:23 98.3 83 18 121/88 01/10/17 18:00 98.3 86 18 127/80 01/10/17 17:02 98.1 91 18 117/26 Result Diagram: 01/11/17 0523 Objective Remarks GENERAL: Well-nourished, well-developed patient. CARDIOVASCULAR: Regular rate and rhythm without murmurs, gallops, or rubs. RESPIRATORY: Breath sounds equal bilaterally. No accessory muscle use. ABDOMEN/GI: Abdomen soft, non-tender, bowel sounds present. Incision: Clean, dry and intact. Fundus: Firm, non-tender at umbilicus. GENITOURINARY: Light to moderate bleeding. EXTREMITIES: No cyanosis or edema, non-tender, without signs of DVT. Assessment/Plan Problem List: (1) Anemia Plan: IV VENOFER. and TRANSFUSION of 2 units (2) S/P primary low transverse Plan: ROUTINE Assessment and Plan POD #3 Status post section for twin gestation Severe anemia, hemoglobin 7.5 after blood transfusion of 2 units, pt feeling a little better, we will treat post pain well managed with oral pain medication ROUTINE POST OP CARE Discharge Planning dc home today Nga Bond Jan 11, 2017 15:03
== END 2017-01-11 14:45 | disposition home or self-care (01) | DRG 765 ==
LOC: H2EB 01-08 09:30 → H1EA 01-08 14:35
PROVIDERS: ADMIT Obstetrics & Gynecology; ATTEND Obstetrics & Gynecology
PROC: 10D00Z1 Extraction of Products of Conception, Low, Open Approach (ICD-10-PCS; principal; 2017-01-08)
PROC: 30233N1 Transfusion of Nonautologous Red Blood Cells into Peripheral Vein, Percutaneous Approach (ICD-10-PCS; 2017-01-08)
DX: O32.2XX1 Maternal care for transverse and oblique lie, fetus 1 (principal); O30.043 Twin pregnancy, dichorionic/diamniotic, third trimester; Z37.2 Twins, both liveborn; O32.2XX2 Maternal care for transverse and oblique lie, fetus 2; O99.02 Anemia complicating childbirth; D64.9 Anemia, unspecified; Z3A.38 38 weeks gestation of pregnancy
CPT/HCPCS: 36430; 59025; 76937; 81001; 85025; 85027; 86850; 86900; 86901; 86920; 87086; 88307; J0690; J1200; J1756; J2250; J2274; J2405; J2590; J7120; P9016; Q0163

== ENCOUNTER 2017-01-15 09:33 | Emergency (ER) | payer MEDICAID, OTHER ==
[~2017-01-15] VITALS: Ht 177.8 cm; Wt 120.0 kg
[~2017-01-15 09:33] MED LIST changes: -AUGM875T3 PO
[2017-01-15 09:35] VITALS: BP 142/80; PULSE 114; RESP 24; TEMP 99.1; O2SAT 100
[2017-01-15] MEDS ORDERED: AMOXICILLIN/CLAVULANATE K 875 MG TAB PO ONE (10:30)
[2017-01-15] MEDS ORDERED: oxyCODONE/ACETAMINOPHEN 5 MG/325 MG TAB PO ONE (10:30)
[2017-01-15] MEDS ORDERED: AUGM875T3 PO (10:58)
--- NOTE | 2017-01-15 10:58 | PD ---
HPI Chief Complaint: Fever Time Seen by Provider: 10:08 Travel History International Travel<30 days: No Contact w/Intl Traveler<30days: No Traveled to known affect area: No History of Present Illness HPI Patient is a 21-year-old female who presents to emergency room with complaints of right-sided breast pain. She reports that she gave to twins on Sunday via by Dr. Shay. Patient reports that she is not and has not brought down any milk or colostrum but has been breast pumping. Patient reports that she noticed her right breast feels hard and red. Patient reports that she is concern for possible mastitis. She has been putting warm compresses to her breast without any relief of symptoms. Patient with no fevers or chills, no nausea or vomiting. Patient with no abdominal pain at this time. PFSH Past Medical History Anemia: Yes Diminished Hearing: No Reproductive: Yes ( 09/12/14) Immunizations Current: Yes ?: Not : 1 Para: 2 : 1 Social History Alcohol Use: No Tobacco Use: No Substance Use: No Allergies-Medications (Allergen,Severity, Reaction): Coded Allergies: No Known Allergies (Verified , 01/15/17) Reported Meds & Prescriptions Reported Meds & Active Scripts Active Feosol (Ferrous Sulfate) 200 Mg Tab 200 Mg PO BIDPC Oxycodone-Acetaminophen 5-325 mg Tab 1 Tab PO Q4H Ibuprofen 600 Mg Tab 600 Mg PO Q6H Reported [ vitamin] 1 Tab DAILY Review of Systems General / Constitutional: No: Fever, Chills Eyes: No: Visual changes HENT: No: Headaches Cardiovascular: No: Chest Pain or Discomfort Respiratory: No: Shortness of Breath Gastrointestinal: No: Abdominal Pain Genitourinary: No: Dysuria Musculoskeletal: No: Pain Skin: Positive Breast Tenderness, Positive Breast Swelling, No Rash Neurologic: No: Weakness Psychiatric: No: Depression Endocrine: No: Polydipsia Hematologic/Lymphatic: No: Easy Bruising Physical Exam Narrative GENERAL: NAD, nontoxic SKIN: Focused skin assessment warm/dry. HEAD: Atraumatic. Normocephalic. EYES: Pupils equal and round. No scleral icterus. No injection or drainage. ENT: No nasal bleeding or discharge. Mucous membranes pink and moist. NECK: Trachea midline. No JVD. CARDIOVASCULAR: Regular rate and rhythm. No murmur appreciated. Patient with swelling to right lateral breast with erythema, no nipple discharge RESPIRATORY: No accessory muscle use. Clear to auscultation. Breath sounds equal bilaterally. GASTROINTESTINAL: Abdomen soft, non-tender, nondistended. Hepatic and splenic margins not palpable. MUSCULOSKELETAL: No obvious deformities. No clubbing. No cyanosis. No edema. NEUROLOGICAL: Awake and alert. No obvious cranial nerve deficits. Motor grossly within normal limits. Normal speech. PSYCHIATRIC: Appropriate mood and affect; insight and judgment normal. Data Data Last Documented VS Vital Signs Date Time Temp Pulse Resp B/P Pulse Ox O2 Delivery O2 Flow Rate FiO2 01/15/17 09:52 97 Room Air 01/15/17 09:35 99.1 114 24 142/80 Orders Oxycodone-Acetamin 5-325 Mg (Percocet (01/15/17 10:30) Amoxicil-Clavulanate (Augmentin) (01/15/17 10:30) [facility] Medical Decision Making Medical Screen Exam Complete: Yes Emergency Medical Condition: Yes Interpretation(s) Vital Signs Date Time Temp Pulse Resp B/P Pulse Ox O2 Delivery O2 Flow Rate FiO2 01/15/17 09:52 97 Room Air 01/15/17 09:35 99.1 114 24 142/80 100 Room Air Differential Diagnosis Differential includes mastitis, breast abscess though unlikely Narrative Course 21-year-old female who recently gave to twins on Sunday, presents to emergency room with complaints of pain and swelling to her right breast. She has not made any milk or colostrum. On physical exam, she has redness and tenderness to her right lateral breast consistent with mastitis. Discussed need for continuation of warm compresses as well as antibiotics. Patient will follow up with Dr. Nolan and will return to ER as needed. Signs and symptoms of when to return to the emergency room was reviewed patient in detail. Diagnosis Primary Impression: Mastitis, acute Patient Instructions: General Instructions Additional Instructions: Apply warm compresses to right breast Please take all antibiotics as prescribed Please follow up with Dr. Nolan and return to ER as needed Return to ER if symptoms worsen or persist Med/Other Pt SpecificInfo: Prescription(s) given Scripts Amoxicillin-Clavulanate (Augmentin)875-125 Mg Tab1 Tab PO BID 10 Days Ref 0 Prov:Cyndie Youssef DO 01/15/17 Disposition: 01 DISCHARGE HOME Condition: Stable Cyndie Youssef DO Jan 15, 2017 10:58
== END 2017-01-15 11:15 | disposition home or self-care (01) ==
LOC: NEPC 09:33
DX: O91.22 Nonpurulent mastitis associated with the puerperium (principal); O90.81 Anemia of the puerperium; Z79.899 Other long term (current) drug therapy
CPT/HCPCS: 99283

== ENCOUNTER → 2017-01-15 | Outpatient (CLI) | payer MEDICAID ==
[~2017-01-15] MED LIST changes: -AMOX875T PO; +AUGM875T3 PO; -DEPO150I IM; +FERR200T PO; +IBUP-232 PO; -IBUP800T23 PO; -MACR100C2 PO; +OXYC1TAB63 PO; -PRED10 PO; +prenatal vitamin
--- NOTE | 2017-01-17 08:02 | RADRPT ---
EXAM DATE/TIME: 01/15/2017 16:03 [place] COMPARISON: No previous studies available for comparison. INDICATIONS : Right breast mastitis. MEDICAL HISTORY : . Right breast swelling. SURGICAL HISTORY : section. ENCOUNTER: Initial ACUITY: 1 week PAIN SCORE: 8/10 LOCATION: Right breast. FINDINGS: Patient is one week , has an intensely swollen right breast. Careful ultrasound of the rig ht breast reveals dilated ducts throughout the breast as one would expect. I see no obvious containe d fluid collection suggesting an abscess that could be abscess could be drained. This may well be an early mastitis. CONCLUSION: 1. I do not see a drainable abscess. 2. Swollen tense right breast that could be early mastitis. Kimo Espinal MD FACR on January 17, 2017 at 7:47 Board Certified Radiologist. This report was verified electronically.
== END ==
LOC: HRAD 15:35
PROVIDERS: ATTEND Obstetrics & Gynecology
DX: N61.0 Mastitis without abscess (principal)
CPT/HCPCS: 76642

== ENCOUNTER 2017-02-07 13:04 | Emergency (ER) | payer MEDICAID ==
[~2017-02-07] VITALS: Ht 177.8 cm; Wt 108.5 kg
[~2017-02-07 13:04] MED LIST changes: +AUGM875T3 PO
[2017-02-07 13:05] VITALS: BP 127/85; PULSE 131; RESP 20; TEMP 98.8; O2SAT 100
[2017-02-07 13:12] VITALS: PULSE 115
--- NOTE | 2017-02-07 13:16 | PD ---
HPI Chief Complaint: ABD PAIN Time Seen by Provider: 13:12 Travel History International Travel<30 days: No Contact w/Intl Traveler<30days: No Traveled to known affect area: No History of Present Illness HPI 21 YOBF C/O ABD PAIN AND CONSTIPATION X 1.5 WEEKS. 4 WEEKS S/P C SEC VS REVIEWED PT WAITING FOR BED PLACEMENT. PFSH Past Medical History Anemia: Yes Diminished Hearing: No Reproductive: Yes ( 09/12/14) Immunizations Current: Yes : 1 Para: 2 : 1 Social History Alcohol Use: No Tobacco Use: No Substance Use: No Allergies-Medications (Allergen,Severity, Reaction): Coded Allergies: No Known Allergies (Verified , 01/15/17) Reported Meds & Prescriptions Reported Meds & Active Scripts Active Augmentin (Amoxicillin-Clavulanate) 875-125 Mg Tab 1 Tab PO BID 10 Days Feosol (Ferrous Sulfate) 200 Mg Tab 200 Mg PO BIDPC Oxycodone-Acetaminophen 5-325 mg Tab 1 Tab PO Q4H Ibuprofen 600 Mg Tab 600 Mg PO Q6H Reported [ vitamin] 1 Tab DAILY Physical Exam Narrative . Data Data Last Documented VS Vital Signs Date Time Temp Pulse Resp B/P Pulse Ox O2 Delivery O2 Flow Rate FiO2 02/07/17 13:05 98.8 131 20 127/85 100 Room Air MDM Medical Decision Making Medical Screen Exam Complete: No Emergency Medical Condition: Yes Medical Record Reviewed: No Interpretation(s) . Differential Diagnosis . Narrative Course . Kamran Gaviria Feb 07, 2017 13:15
[2017-02-07] MEDS ORDERED: SOD PHOSPHATE/SOD BIPHOSPHATE (ADULT) ENEMA 133ML RECTAL ONE (13:45)
[2017-02-07 14:00] VITALS: BP 124/78; PULSE 87; RESP 16; O2SAT 99
[2017-02-07] MEDS ORDERED: MAGNESIUM CITRATE SOLN 300 ML BTL PO ONE (14:45)
--- NOTE | 2017-02-07 15:12 | RADRPT ---
EXAM DATE/TIME: 02/07/2017 15:03 [place] Corrected on: February 21, 2017; removed cc physician NAHOMY COMPARISON: No previous studies available for comparison. INDICATIONS : Constipation for one and a half weeks. MEDICAL HISTORY : None. SURGICAL HISTORY : section. ENCOUNTER: Initial ACUITY: 2 weeks PAIN SCORE: 0/10 LOCATION: Bilateral Abdomen FINDINGS: There is no free air. Scattered air-fluid levels are seen in both large and small bowel with solid s tool in the descending colon. There are no dominant calcifications. CONCLUSION: Scattered air-fluid levels as described above without free air. Ileus versus distal colonic obstruct ion. Correlation is suggested. Kimo Espinal MD FACR on February 07, 2017 at 15:10 Board Certified Radiologist. This report was verified electronically. on February 21, 2017 at 12:33 Caution: Report not yet finalized and possibly incomplete! Board Certified Radiologist. This report was verified electronically.
--- NOTE | 2017-02-07 15:25 | PD ---
HPI Chief Complaint: GI Complaint Time Seen by Provider: 13:35 Travel History International Travel<30 days: No Contact w/Intl Traveler<30days: No Traveled to known affect area: No History of Present Illness HPI This is a 21-year-old female who is one month from a , who presents here with complaints of severe constipation. The patient states that she last had a bowel movement 1-1/2 weeks ago. She reports severe pain in her abdomen. She states that she feels the urge to have a bowel movement however cannot. She denies a fevers, chills. She is able to eat. She denies any vomiting or nausea. There are no other complaints time my examination. PFSH Past Medical History Anemia: Yes Diminished Hearing: No Reproductive: Yes ( 09/12/14) Immunizations Current: Yes ?: Not : 1 Para: 2 : 1 Past Surgical History Section: Yes Social History Alcohol Use: No Tobacco Use: No Substance Use: No Allergies-Medications (Allergen,Severity, Reaction): Coded Allergies: No Known Allergies (Verified , 02/07/17) Reported Meds & Prescriptions Reported Meds & Active Scripts Active No Active Prescriptions or Reported Medications Review of Systems Except as stated in HPI: all other systems reviewed are Neg General / Constitutional: No: Fever, Chills HENT: No: Headaches, Vertigo, Lightheadedness Cardiovascular: No: Chest Pain or Discomfort, Palpitations Respiratory: No: Cough, Shortness of Breath Gastrointestinal: Positive: Abdominal Pain, Constipation, No: Nausea, Vomiting Genitourinary: No: Frequency, Dysuria (no bowel movement 1.5 weeks) Musculoskeletal: No: Weakness, Pain Neurologic: No: Weakness, Dizziness, Headache Physical Exam Narrative GENERAL: Well-nourished, well-developed patient. SKIN: Focused skin assessment warm/dry. HEAD: Normocephalic/atraumatic. EYES: No scleral icterus. No injection or drainage. NECK: Supple, trachea midline. No JVD or lymphadenopathy. CARDIOVASCULAR: Regular rate and rhythm without murmurs, gallops, or rubs. RESPIRATORY: Breath sounds equal bilaterally. No accessory muscle use. GASTROINTESTINAL: Abdomen soft, nondistended. She has subjective crampy pain with the urge to have a bowel movement. There is no rebound or guarding. MUSCULOSKELETAL: No cyanosis, or edema. NEUROLOGICAL: Awake and alert. Cranial nerves II through XII intact. Motor grossly within normal limits. Five out of 5 muscle strength in all muscle groups. Normal speech. Data Data Last Documented VS Vital Signs Date Time Temp Pulse Resp B/P Pulse Ox O2 Delivery O2 Flow Rate FiO2 02/07/17 18:00 74 16 103/63 99 Room Air 02/07/17 13:05 98.8 Orders Fleets Enema (Adult) (Fleets Enema (Adul (02/07/17 13:45) Abdomen, Upright Only (02/07/17 14:40) Magnesium Citrate Liq (Citroma Liq) (02/07/17 14:45) Complete Blood Count With Diff (02/07/17 15:12) Comprehensive Metabolic Panel (02/07/17 15:12) Ct Abd/Pel W Iv Contrast(Rout) (02/07/17 15:12) Oral Contrast - Adult (02/07/17 15:25) Diatrizoate Liq ( Gastroview Liq) (02/07/17 15:26) Urinalysis - C+S If Indicated (02/07/17 15:35) Labs Laboratory Tests Test 02/07/17 02/07/17 15:30 17:30 White Blood Count 9.6 TH/MM3 Red Blood Count 4.65 MIL/MM3 Hemoglobin 10.7 GM/DL Hematocrit 34.2 % Mean Corpuscular Volume 73.5 FL Mean Corpuscular Hemoglobin 23.0 PG Mean Corpuscular Hemoglobin 31.2 % Concent Red Cell Distribution Width 25.2 % Platelet Count 210 TH/MM3 Mean Platelet Volume 10.5 FL Neutrophils (%) (Auto) 78.2 % Lymphocytes (%) (Auto) 15.2 % Monocytes (%) (Auto) 5.8 % Eosinophils (%) (Auto) 0.7 % Basophils (%) (Auto) 0.1 % Neutrophils # (Auto) 7.5 TH/MM3 Lymphocytes # (Auto) 1.4 TH/MM3 Monocytes # (Auto) 0.6 TH/MM3 Eosinophils # (Auto) 0.1 TH/MM3 Basophils # (Auto) 0.0 TH/MM3 CBC Comment AUTO DIFF Differential Comment AUTO DIFF CONFIRMED Platelet Estimate Tear Drop Cells 1+ Acanthocytes 1+ Sodium Level 137 MEQ/L Potassium Level 3.4 MEQ/L Chloride Level 104 MEQ/L Carbon Dioxide Level 24.0 MEQ/L Anion Gap 9 MEQ/L Blood Urea Nitrogen 9 MG/DL Creatinine 0.83 MG/DL Estimat Glomerular Filtration 104 ML/MIN Rate Random Glucose 86 MG/DL Calcium Level 9.0 MG/DL Total Bilirubin 0.5 MG/DL Aspartate Amino Transf 15 U/L (AST/SGOT) Alanine Aminotransferase 15 U/L (ALT/SGPT) Alkaline Phosphatase 102 U/L Total Protein 7.7 GM/DL Albumin 3.4 GM/DL Urine Color YELLOW Urine Turbidity HAZY Urine pH 7.0 Urine Specific Woody 1.026 Urine Protein 30 mg/dL Urine Glucose (UA) NEG mg/dL Urine Ketones 10 mg/dL Urine Occult Blood SMALL Urine Nitrite NEG Urine Bilirubin NEG Urine Urobilinogen LESS THAN 2.0 MG/DL Urine Leukocyte Esterase TRACE Urine RBC 2 /hpf Urine WBC 5 /hpf Urine Squamous Epithelial 12 /hpf Cells Urine Mucus FEW /lpf Microscopic Urinalysis Comment CULT NOT INDICATED MDM Medical Decision Making Medical Screen Exam Complete: Yes Emergency Medical Condition: Yes Differential Diagnosis Constipation versus obstipation versus bowel obstruction Narrative Course 21-year-old female who status post 1 month ago, presents today with complaints of inability to have a bowel movement 1.5 weeks. The patient had the urge to have a bowel movement however was unsuccessful. She was given a fleets enema first with no success. She was then given a soapsuds enema that had a good result. Post enema upright abdomen shows multiple air-fluid levels. CT scan was ordered which reveals no evidence of obstruction or free air. It appears that she is evacuated most of her colon. She'll be discharged and told to take [id number] stool softener 1-2 weeks. Her potassium was 3.4. She was given a dose of potassium prior to departure. Diagnosis Primary Impression: severe constipation. Additional Impression: mild hypokalemia Additional Instructions: Take stool softener daily times one to 2 weeks. Drink plenty of liquids. Return if feeling worse. Eat potassium-rich foods like green leafy vegetables, bananas or citrus fruit. Scripts No Active Prescriptions or Reported Meds Disposition: 01 DISCHARGE HOME Condition: Stable Orlando Wheeler MD Feb 07, 2017 15:25
[2017-02-07] MEDS ORDERED: DIATRIZOATE MEGLUM/DIATRIZOATE SOD 9 ML CUP ONE (15:26)
[2017-02-07 15:57] LABS: AUTOMATED NEUTROPHIL # 7.5 TH/MM3 (1.8-7.7); BASOPHIL % 0.1 % (0.0-2.0); EOSINOPHIL # 0.1 TH/MM3 (0-0.4); EOSINOPHIL % 0.7 % (0.0-4.0); HEMATOCRIT 34.2 % (35.0-46.0); LYMPH % 15.2 % (9.0-44.0); LYMPHOCYTE # 1.4 TH/MM3 (1.0-4.8); MEAN CELL VOLUME 73.5 FL (80.0-100.0); MEAN CORPUSCULAR HGB CONC 31.2 % (32.0-36.0); MONO % 5.8 % (0.0-8.0); NEUT % 78.2 % (16.0-70.0); PLATELET COUNT 210 TH/MM3 (150-450); RED BLOOD COUNT 4.65 MIL/MM3 (4.00-5.30); RED CELL DISTRIBUTION WIDTH 25.2 % (11.6-17.2); WHITE BLOOD COUNT 9.6 TH/MM3 (4.0-11.0)
[2017-02-07 16:02] LABS: HEMO FLAGS AUTO DIFF
[2017-02-07 16:10] LABS: ALT (GPT) 15 U/L (10-53); ANION GAP 9 MEQ/L (5-15); AST (GOT) 15 U/L (15-37); BLOOD UREA NITROGEN 9 MG/DL (7-18); CHLORIDE 104 MEQ/L (98-107); GLOMERULAR FILTRATION RATE 104 ML/MIN (>89); POTASSIUM 3.4 MEQ/L (3.5-5.1); SODIUM (NA) 137 MEQ/L (136-145)
[2017-02-07 16:12] LABS: ALKALINE PHOSPHATASE 102 U/L (45-117); TOTAL BILIRUBIN ADULT 0.5 MG/DL (0.2-1.0)
[2017-02-07 16:52] LABS: ACANTHOCYTES 1+ (NORMAL); SCAN/DIFF AUTO DIFF CONFIRMED; TEARDROP RBCS 1+ (NORMAL)
[2017-02-07 17:51] LABS: BLOOD, URINE SMALL (NEG); COMMENT (UR) CULT NOT INDICATED; CULTURE IF INDICATED CULT NOT INDICATED; GLUCOSE,URINE NEG (NEG); KETONE, URINE 10 mg/dL (NEG); MUCUS URINE FEW /lpf (OCC); NITRITE,URINE NEG (NEG); SQUAMOUS EPITHELIAL CELL URINE 12 /hpf (0-5); URINE COLOR YELLOW (YELLW/STRAW)
[2017-02-07 18:00] VITALS: BP 103/63; PULSE 74; RESP 16; O2SAT 99
[2017-02-07] MEDS ORDERED: IOHEXOL 350 MG/ML 10 ML VIAL (for RAD DIAG) IV ONE (18:02)
--- NOTE | 2017-02-07 19:09 | RADRPT ---
EXAM DATE/TIME: 02/07/2017 18:02 CORRECTION Corrected on: February 21, 2017; removed cc physician NAHOMY COMPARISON: US BREAST RIGHT, January 15, 2017, 16:03. INDICATIONS : Severe constipation for one week. IV CONTRAST: 80 cc Omnipaque 300 (iohexol) IV ORAL CONTRAST: Partial prescribed oral contrast ingested. RADIATION DOSE: 11.3 CTDIvol (mGy) MEDICAL HISTORY : None SURGICAL HISTORY : section. Four weeks ENCOUNTER: Initial ACUITY: 1 week PAIN SCALE: 10/10 LOCATION: Bilateral TECHNIQUE: Volumetric scanning of the abdomen and pelvis was performed. Using automated exposure control and ad justment of the mA and/or kV according to patient size, radiation dose was kept as low as reasonably achievable to obtain optimal diagnostic quality images. DICOM format image data is available electro nically for review and comparison. FINDINGS: LOWER CHEST: The visualized lower lungs are clear. There is a mass seen in the right axillary region. This is only partially seen. The area visualized measures over 7 cm in diameter. LIVER: Homogeneous density without lesion. There is no dilation of the biliary tree. No calcified gallston es. SPLEEN: Normal size without lesion. PANCREAS: Within normal limits. KIDNEYS: Normal in size and shape. There is no mass, stone or hydronephrosis. ADRENAL GLANDS: Within normal limits. VASCULAR: There is no aortic aneurysm. BOWEL/MESENTERY: The stomach, small bowel, and colon demonstrate no acute abnormality. There is no free intraperitone al air or fluid. ABDOMINAL WALL: Within normal limits. There is diastases of the rectus muscles. RETROPERITONEUM: There is no lymphadenopathy. BLADDER: No wall thickening or mass. REPRODUCTIVE: Within normal limits. INGUINAL: There is no lymphadenopathy or hernia. MUSCULOSKELETAL: Within normal limits for patient age. CONCLUSION: 1. No acute abdominal or pelvic abnormality seen. 2. Right axillary mass. Michael Montano MD on February 07, 2017 at 19:04 Board Certified Radiologist. This report was verified electronically. Board Certified Radiologist. This report was verified electronically.
[2017-02-07] MEDS ORDERED: POTASSIUM CHLORIDE 10 MEQ CONTROLLED RELEASE TAB PO ONE (19:30)
[2017-02-07 19:45] VITALS: BP 109/55
== END 2017-02-07 19:55 | disposition home or self-care (01) ==
LOC: NEPC 13:04
DX: K59.00 Constipation, unspecified (principal); E87.6 Hypokalemia
CPT/HCPCS: 74000; 74177; 80053; 81001; 85025; 99285; Q9963; Q9967